=== PATIENT | male | born 1980 | race Native Hawaiian/Other Pacific Islander ===

== ENCOUNTER 2016-06-14 05:37 | Emergency (ER) | payer OTHER ==
[2016-06-14] MEDS ORDERED: solu-MEDROL 125 MG IV ONE (05:50)
[2016-06-14] MEDS ORDERED: DUONEB 0.5-3 MG/3 ml Neb IH ONE ×2 (05:50→05:58)
--- NOTE | 2016-06-14 05:57 | ERPHSYRPT ---
- History of Present Illness Time Seen by Provider: 06/14/16 05:46 Source: patient Exam Limitations: no limitations Patient Subjective Stated Complaint: COUGH COLD RIB PAIN X 4-5 DAYS - RIGHT EAR PAIN Triage Nursing Assessment: AMBULATORY TO TREATMENT AREA - STEADY GAIT - MOVES ALL EXTREMITIES WITH EQUAL STRENGTH. ALERT/ORIENTED - APPROPRIATE AFFECT. SKIN PWD - NO RASH/INJURY. RESPS NON-LABORED - NON-PRODUCTIVE COUGH Physician History: This is a 35-year-old white male arrives with complaints of cough congestion right ear pain symptoms for 4 days. Patient states he has pain in his ribs bilaterally with coughing he has no vomiting no diarrhea. Past medical history includes chronic back pain. Patient is on Suboxone. Past surgical history includes back fusion. Social history positive for chewing tobacco. Timing/Duration: day(s) (4 days) Severity: moderate Modifying Factors: Improves With: nothing Associated Symptoms: cough, chest pain (pain in the ribs with coughing), other ( right ear pain), No denies symptoms, No nausea, No vomiting, No abdominal pain, No shortness of breath, No heartburn, No diaphoresis, No chills, No fever, No headaches, No loss of appetite, No malaise, No rash, No syncope, No seizure, No weakness Allergies/Adverse Reactions: No Known Drug Allergies Allergy (Unverified 06/14/16 05:38) Home Medications: Buprenorphine HCl/Naloxone HCl [Suboxone 8 mg-2 mg Tablet Sl] 2 each SL DAILY [History] Sertraline HCl 50 mg [Zoloft 50 mg Tablet] 50 mg PO DAILY 06/14/16 [History] Hx Tetanus, Diphtheria Vaccination/Date Given: No Hx Influenza Vaccination/Date Given: No Hx Pneumococcal Vaccination/Date Given: No Immunizations Up to Date: Yes - Review of Systems Constitutional: No Fever, No Chills Eyes: No Symptoms Ears, Nose, & Throat: Ear Pain, No Ear Discharge, No Hearing Changes, No Tinnitus, No Nose Pain, No Nose Congestion, No Nose Discharge, No Sinus Drainage , No Epistaxis, No Mouth Pain, No Mouth Swelling, No Loose Teeth, No Throat Pain , No Throat Swelling, No Hoarse, No Painful Swallowing, No Snoring, No Stridor Respiratory: Cough, No Cyanosis, No Dyspnea, No Dyspnea on Exertion (BRANTLEY), No Stridor Cardiac: No Chest Pain (pain in the ribs with coughing), No Edema, No Palpitations, No Syncope, No Orthopnea, No PND, No Other Abdominal/Gastrointestinal: No Abdominal Pain, No Nausea, No Vomiting, No Diarrhea Genitourinary Symptoms: No Dysuria Musculoskeletal: No Back Pain, No Neck Pain Skin: No Rash Neurological: No Dizziness, No Focal Weakness, No Sensory Changes Psychological: No Symptoms Endocrine: No Symptoms All Other Systems: Reviewed and Negative - Past Medical History Pertinent Past Medical History: No - Past Surgical History Past Surgical History: Yes Other Surgical History: BACK FUSION T-12 - Social History Smoking Status: Never smoker Exposure to second hand smoke: No Drug Use: none Patient Lives Alone: No - Nursing Vital Signs Nursing Vital Signs: Initial Vital Signs Temperature 98.4 F Temperature Source Oral Pulse Rate 86 Respiratory Rate 20 Blood Pressure [] 154/92 Pain Intensity 7 - Physical Exam General Appearance: mild distress Eye Exam: PERRL/EOMI, eyes nml inspection Ears, Nose, Throat Exam: TMs normal, pharynx normal, moist mucous membranes, TM abnormal (L) Neck Exam: normal inspection, non-tender, supple, full range of motion Respiratory Exam: airway intact, wheezing (bilateral wheezes), No chest tenderness, No lungs clear, No respiratory distress, No diminished breath sounds , No accessory muscle use, No prolonged expirations, No crackles/rales, No rhonchi Cardiovascular Exam: regular rate/rhythm, normal heart sounds, normal peripheral pulses Gastrointestinal/Abdomen Exam: soft, normal bowel sounds, No tenderness, No mass Back Exam: normal inspection, normal range of motion, No CVA tenderness, No vertebral tenderness Extremity Exam: normal inspection, normal range of motion, pelvis stable Neurologic Exam: alert, oriented x 3, cooperative, normal mood/affect, nml cerebellar function, nml station & gait, sensation nml, No motor deficits Skin Exam: normal color, warm, dry, No rash Lymphatic Exam: No adenopathy SpO2 Interpretation: normal (92%) SpO2: 92 Oxygen Delivery: Room Air - Course Nursing assessment & vital signs reviewed: Yes - Radiology Exams Chest X-ray Interpretation: Interpreted by me, Negative, No Pneumonia, No Pneumothorax , Other (no acute disease process noted) Ordered Tests: Active Orders 24 hr Category Date Time Status IV Insertion STAT Care 06/14/16 06:04 Active CHEST 1 VIEW (PORTABLE) Stat Exams 06/14/16 05:50 Taken Respiratory Nebulizer STAT RT 06/14/16 05:51 Completed Medication Summary Discontinued Medications Generic Name Dose Route Start Last Admin Trade Name Deisi PRN Reason Stop Dose Admin Albuterol/Ipratropium 3 ml 06/14/16 05:50 06/14/16 05:59 Duoneb 0.5-3 Mg/3 Ml Neb IH 06/14/16 05:51 3 ml STAT ONE Administration Albuterol/Ipratropium Confirm 06/14/16 05:58 Duoneb 0.5-3 Mg/3 Ml Neb Administered 06/14/16 05:59 Dose 3 ml IH .STK-MED ONE Ketorolac Tromethamine 30 mg 06/14/16 05:58 06/14/16 06:03 Toradol 30 Mg Injection IV 06/14/16 05:59 30 mg STAT ONE Administration Ketorolac Tromethamine Confirm 06/14/16 06:00 Toradol 30 Mg Injection Administered 06/14/16 06:01 Dose 30 mg .ROUTE .STK-MED ONE Methylprednisolone Sodium Succinate 125 mg 06/14/16 05:50 06/14/16 06:03 Solu-Medrol 125 Mg IV 06/14/16 05:51 125 mg STAT ONE Administration Methylprednisolone Sodium Succinate Confirm 06/14/16 06:00 Solu-Medrol 125 Mg Administered 06/14/16 06:01 Dose 125 mg .ROUTE .STK-MED ONE - Progress Progress: improved Progress Note: 06/14/16 05:55 35-year-old white male with history of chronic back pain who is on Suboxone arrives with complaint of cough congestion right ear pain cough is nonproductive pain has pain in the bilateral lower ribs with deep breathing. He has audible wheezes with deep breathing. His left ear is erythematous. Will go ahead and give patient DuoNeb treatment plan with antibiotics Will give patient Solu-Medrol in the emergency room. Obtain chest x-ray. Anticipate discharged with antibiotics and corticosteroids, and albuterol inhaler. Will avoid narcotic analgesia . 06/14/16 06:21 Patient feeling better after DuoNeb treatment still has some rhonchi in his lungs pulse oximetry improved to 94%. Will discharge patient with prescription for Zithromax, tapering prednisone, and albuterol inhaler. Will give patient a work slip for today and tomorrow. - Departure Time of Disposition: 06:22 Departure Disposition: Home Clinical Impression: Bronchitis, Bronchospasm Condition: Fair Critical Care Time: No Referrals: DOCTOR,NO FAMILY [Primary Care Provider] - Instructions: Cough -- Adult Additional Instructions: Return home. Plenty of fluids. Albuterol inhaler 2 puffs every 4 hours as needed. Zithromax Z-JAYJAY as directed. Tapering dose of prednisone as directed. Follow-up with your family doctor if symptoms are worse, no better in 48 hours, or persist longer than one week. Return for acute distress or for severe symptoms. Tylenol every 4 hours or Motrin every 6 hours as needed for pain. Prescriptions: Albuterol Common Canister [Proventil Common Canister] 2 puff IH Q4-6HPRN PRN #1 puff PRN Reason: shortness of breath/ wheezing Azithromycin 250 mg [Zithromax 250 MG TABLET] 0 mg PO ZPACK #6 tablet
[2016-06-14] MEDS ORDERED: TORAdol 30 mg Injection IV ONE (05:58)
[2016-06-14] MEDS ORDERED: solu-MEDROL 125 MG ONE (06:00)
[2016-06-14] MEDS ORDERED: TORAdol 30 mg Injection ONE (06:00)
[2016-06-14 06:34] VITALS: BP 134/84; PULSE 83; O2SAT 95
--- NOTE | 2016-06-14 19:57 | XRAY ---
Exam: AP portable chest film from 0600 hrs. on 06/14/2016 Comparison: None. Indication: Cough. Findings: The level of inspiration is not deep. The transverse heart size is normal for this AP portable technique. The spring and mediastinal structures appear unremarkable. The film was obtained in a mildly lordotic projection. No air space infiltrates, vascular congestion, pneumothorax, or pleural fluid is seen. The bones appear grossly intact. Impression: 1. Low lung volumes. No acute cardiopulmonary disease is seen.
== END 2016-06-14 06:35 | disposition home or self-care (01) ==
LOC: ED 05:37
DX: J20.9 Acute bronchitis, unspecified (principal)
CPT/HCPCS: 36000; 71010; 94640; 96374; 96375; 99284; J1885; J2930; A9270-GY